=== PATIENT | male | born 1980 | race Caucasian/White ===

== ENCOUNTER 2020-03-14 04:56 | Emergency (ER) | payer SELFPAY ==
--- NOTE | 2020-03-14 05:12 | EDM.PDOC ---
ED HPI GENERAL MEDICAL PROBLEM - General Chief Complaint: Cardiovascular Problem Stated Complaint: RAPID HEART RATE, SOB Time Seen by Provider: 03/14/20 05:12 - History of Present Illness INITIAL COMMENTS - FREE TEXT/NARRATIVE: 40-year-old male presents the emergency room with shortness of breath and what he thinks is a rapid pulse. This is been going on for several days seem to get worse this morning. He has a chest tightness with this. He is not aware of any fevers but has felt warm at times. He has muscle tightness in his back especially on the right side. The patient was screened for coven on the of this month the results of that was negative. Patient denies any significant past medical history. Family history is noncontributory for the HPI however, patient's mother developed diabetes later in life. - Related Data Allergies Allergy/AdvReac Type Severity Reaction Status Date / Time No Known Allergies Allergy Verified 03/14/20 05:09 Home Meds: Home Meds . [No Known Home Meds] 03/14/20 [History] ED ROS GENERAL - Review of Systems Review Of Systems: See Below Constitutional: Reports: Fever HEENT: Reports: No Symptoms Respiratory: Reports: Shortness of Breath. Denies: Cough, Sputum Cardiovascular: Reports: No Symptoms Endocrine: Reports: No Symptoms GI/Abdominal: Reports: No Symptoms : Reports: No Symptoms Musculoskeletal: Reports: No Symptoms Neurological: Reports: No Symptoms ED EXAM, GENERAL - Physical Exam Exam: See Below Exam Limited By: Other (We have an obvious language barrier however he understand simple Kyrgyz. The hand umbrella tipper was used during the initial interview and exam and again to discuss test results and anticipated treatment.) General Appearance: Alert, No Apparent Distress Eye Exam: Bilateral Eye: Normal Inspection Ears: Normal External Exam, Normal Canal, Hearing Grossly Normal, Normal TMs Nose: Normal Inspection, Normal Mucosa, No Blood Throat/Mouth: Normal Inspection, Normal Lips, Normal Teeth, Normal Gums, Normal Oropharynx, Normal Voice, No Airway Compromise Neck: Normal Inspection, Supple, Non-Tender, Full Range of Motion Respiratory/Chest: No Respiratory Distress, Lungs Clear, Normal Breath Sounds Cardiovascular: Regular Rate, Rhythm, No Edema, No Murmur GI/Abdominal: Normal Bowel Sounds, Soft, Non-Tender Back Exam: Paraspinal Tenderness (Patient has some paraspinous tenderness in the upper thoracic region on the right and left side. This seems to be tender with palpation this extends into the base of the neck and towards the shoulders.). No: Vertebral Tenderness Extremities: Normal Inspection, No Pedal Edema Neurological: Alert, Oriented, Normal Cognition Course - Vital Signs Last Recorded V/S: Last Vital Signs Temp 36.4 C 03/14/20 05:10 Pulse 72 03/14/20 05:10 Resp 16 03/14/20 05:10 BP 112/75 03/14/20 05:10 Pulse Ox 100 03/14/20 05:10 - Orders/Labs/Meds Orders: Active Orders 24 hr Category Date Time Status EKG Documentation Completion [RC] STAT Care 03/14/20 05:31 Active CORONAVIRUS COVID-19 PCR PHL Stat Lab 03/14/20 07:57 Ordered Labs: Laboratory Tests 03/14/20 03/14/20 Range/Units 06:19 06:19 WBC 6.82 (4.23-9.07) K/mm3 RBC 4.71 (4.63-6.08) M/mm3 Hgb 14.5 (13.7-17.5) gm/dl Hct 42.1 (40.1-51.0) % MCV 89.4 (79.0-92.2) fl MCH 30.8 (25.7-32.2) pg MCHC 34.4 (32.2-35.5) g/dl RDW Std Deviation 42.3 (35.1-43.9) fL Plt Count 200 (163-337) K/mm3 MPV 11.3 (9.4-12.3) fl Neut % (Auto) 54.9 (34.0-67.9) % Lymph % (Auto) 36.2 (21.8-53.1) % [place] % (Auto) 7.8 (5.3-12.2) % Eos % (Auto) 0.7 L (0.8-7.0) Baso % (Auto) 0.1 (0.1-1.2) % Neut # (Auto) 3.74 (1.78-5.38) K/mm3 Lymph # (Auto) 2.47 (1.32-3.57) K/mm3 [place] # (Auto) 0.53 (0.30-0.82) K/mm3 Eos # (Auto) 0.05 (0.04-0.54) K/mm3 Baso # (Auto) 0.01 (0.01-0.08) K/mm3 Sodium 142 (136-145) mEq/L Potassium 3.9 (3.5-5.1) mEq/L Chloride 105 (98-107) mEq/L Carbon Dioxide 28 (21-32) mEq/L Anion Gap 12.9 (5-15) BUN 12 (7-18) mg/dL Creatinine 1.0 (0.7-1.3) mg/dL Est Cr Clr Drug Dosing TNP Estimated GFR (MDRD) > 60 (>60) mL/min BUN/Creatinine Ratio 12.0 L (14-18) Glucose 105 (74-106) mg/dL Calcium 9.4 (8.5-10.1) mg/dL Total Bilirubin 0.5 (0.2-1.0) mg/dL AST 16 (15-37) U/L ALT 30 (16-63) U/L Alkaline Phosphatase 78 (46-116) U/L Troponin I < 0.017 (0.00-0.056) ng/mL Total Protein 8.2 (6.4-8.2) g/dl Albumin 4.4 (3.4-5.0) g/dl Globulin 3.8 gm/dL Albumin/Globulin Ratio 1.2 (1-2) - Re-Assessments/Exams Free Text/Narrative Re-Assessment/Exam: 03/14/20 08:10 Chest x-ray EKG are unremarkable his laboratory evaluation is unremarkable as well. I discussed all the findings with the educational interpreter who translated the information between the patient myself. The patient had all his questions answered. He is found to have some muscle tightness in the right side at the base of his neck into his upper thorax. The patient will use ibuprofen or naproxen not both at the same time for the discomfort. The patient will have a screening test for COVID done just in case albeit he had 1 done on the of this month a lot can change between then and now. Departure - Departure Time of Disposition: 08:12 Disposition: Home, Self-Care 01 Clinical Impression: Mild shortness of breath, Thoracic myofascial strain Referrals: PCP,None [Primary Care Provider] - Forms: ED Department Discharge Additional Instructions: Return to the emergency room with any questions problems or worsening symptoms. Ibuprofen or naproxen use as needed take with food do not take both of them together. Follow-up in the hospital clinic on Saturday or for recheck if needed. We rechecked your COVID the results of this should be back by Saturday. Sepsis Event Note (ED) - Focused Exam Vital Signs: Vital Signs Temp Pulse Resp BP Pulse Ox 03/14/20 05:10 36.4 C 72 16 112/75 100 - My Orders Last 24 Hours: My Active Orders 03/14/20 05:31 EKG Documentation Completion [RC] STAT 03/14/20 07:57 CORONAVIRUS COVID-19 PCR PHL Stat - Assessment/Plan Last 24 Hours: My Active Orders 03/14/20 05:31 EKG Documentation Completion [RC] STAT 03/14/20 07:57 CORONAVIRUS COVID-19 PCR PHL Stat
--- NOTE | 2020-03-14 06:12 | CR ---
Chest: Portable view of the chest was obtained. Comparison: No prior chest imaging. Heart size and mediastinum are normal. Lungs are clear with no acute parenchymal change. Bony structures are grossly intact. Impression: 1. Nothing acute is seen on portable chest x-ray. Diagnostic code #1 This report was dictated in MDT
== END 2020-03-14 08:38 | disposition home or self-care (01) ==
LOC: JD.ED 04:56
DX: R06.02 Shortness of breath (principal); S29.012A Strain of muscle and tendon of back wall of thorax, initial encounter; Z20.828 Contact with and (suspected) exposure to other viral communicable diseases; X58.XXXA Exposure to other specified factors, initial encounter
CPT/HCPCS: 36415; 71045; 71045-26; 80053; 84484; 85025; 93005; 93010; 99283; 99285-25; U0002

== ENCOUNTER 2020-03-20 00:10 | Emergency (ER) | payer SELFPAY ==
--- NOTE | 2020-03-20 02:48 | EDM.PDOC ---
ED HPI GENERAL MEDICAL PROBLEM - General Chief Complaint: Chest Pain Stated Complaint: CHEST PAIN Time Seen by Provider: 03/20/20 02:20 Source of Information: Reports: Patient, Old Records (ED visit 03/14/2020) History Limitations: Reports: No Limitations - History of Present Illness INITIAL COMMENTS - FREE TEXT/NARRATIVE: Mr. Moss is a very pleasant 40-year-old gentleman with no chronic medical problems and no past surgical history, who, medical records indicate, was seen in this ED this past 03/14/2020 with a complaint at that time of several days of dyspnea, rapid palpitations, and chest tightness. He also complained of upper back muscle tightness. He had not had a recent fever. Work-up included a CBC, CMP, troponin, a test for the SARS-CoV-2 virus, and a chest x-ray, all of which were unremarkable. The patient was discharged home with the recommendation that he take [id number] ibuprofen or naproxen. The patient now returns the ED stating that he has had decreased energy for the past week. He reports that his parascapular pain has been going on for about 3 weeks, and, while mild, it has not been improved by taking Aleve. He states that he feels like there is "a hole" in his epigastric area for the past 3 weeks, waxing and waning. Sometimes it feels burning, and he feels hungry. He has occasional dyspnea, although no cough. He states that he developed lightheadedness about 1 hour prior to coming to the ED, and he reports having about 30 minutes of tingling to both of his hands, going up his forearms. Here in the ED, the patient is found to be hemodynamically stable, afebrile, saturating 99% on room air. Other than the symptoms listed above, the patient denies having a recent fever, chills, sore throat, ear pain, nasal or sinus congestion, cough, nausea, vomiting, constipation, diarrhea, abdominal pain, urinary symptoms, recent weight gain or weight loss, recent bloody bowel movements or black bowel movements, recent joint aches, headaches, or rashes. The patient does not have a PCP. Abdomen Pain Score (Numeric/FACES): 7 - Related Data Allergies Allergy/AdvReac Type Severity Reaction Status Date / Time No Known Allergies Allergy Verified 03/20/20 00:22 Home Meds: Home Meds . [No Known Home Meds] 03/14/20 [History] Past Medical History - Past Health History Medical/Surgical History: Denies Medical/Surgical History Social & Family History - Tobacco Use Smoking Status *Q: Never Smoker - Alcohol Use Alcohol Use History: No - Recreational Drug Use Recreational Drug Use: No - Living Situation & Occupation Living situation: Reports: , with Spouse, with Family (2 kids) Occupation: Employed ([employer]) ED ROS GENERAL - Review of Systems Review Of Systems: Comprehensive ROS is negative, except as noted in HPI. ED EXAM, GENERAL - Physical Exam Exam: See Below Exam Limited By: No Limitations General Appearance: Alert, WD/WN, No Apparent Distress Eye Exam: Bilateral Eye: EOMI, Normal Inspection Ears: Normal External Exam, Hearing Grossly Normal Nose: Normal Inspection Throat/Mouth: Normal Inspection, Normal Lips, Normal Voice, No Airway Compromise Head: Atraumatic, Normocephalic Neck: Normal Inspection, Full Range of Motion Respiratory/Chest: No Respiratory Distress, Lungs Clear, Normal Breath Sounds, No Accessory Muscle Use, Chest Non-Tender Cardiovascular: Normal Peripheral Pulses, Regular Rate, Rhythm, No Edema, No Gal lop, No JVD, No Murmur, No Rub Peripheral Pulses: 3+: Radial (L), Radial (R) GI/Abdominal: Normal Bowel Sounds, Soft, Non-Tender (including the epigastrium), No Organomegaly, No Distention, No Abnormal Bruit, No Mass (Male) Exam: Deferred Rectal (Males) Exam: Deferred Back Exam: Normal Inspection, Full Range of Motion, NT Extremities: Normal Inspection, Normal Range of Motion, No Pedal Edema, Normal Capillary Refill Neurological: Alert, Oriented, Normal Cognition, No Motor/Sensory Deficits Psychiatric: Normal Affect Skin Exam: Warm, Dry, Intact, Normal Color, No Rash EKG INTERPRETATION EKG Date: 03/20/20 Time: 00:26 Rhythm: NSR Rate (Beats/Min): 71 [place]: Normal P-Wave: Present QRS: Normal ST-T: Normal QT: Normal Comparison: No Change (03/14/2020) Course - Vital Signs Last Recorded V/S: Last Vital Signs Temp 36.5 C 03/20/20 00:21 Pulse 75 09/06/20 00:21 Resp 6 L 03/20/20 00:21 BP 128/90 03/20/20 00:21 Pulse Ox 99 03/20/20 00:21 Orthostatic Blood Pressure [ 139/99 Sitting] Orthostatic Blood Pressure [ 131/87 Supine] - Orders/Labs/Meds Orders: Active Orders 24 hr Category Date Time Status Chest 2V [CR] Stat Exams 03/20/20 02:40 Taken CORONAVIRUS COVID-19 PCR PHL Stat Lab 03/20/20 03:10 Received Labs: Laboratory Tests 03/20/20 03/20/20 03/20/20 Range/Units 02:55 02:55 02:55 WBC 8.88 (4.23-9.07) K/mm3 RBC 4.60 L (4.63-6.08) M/mm3 Hgb 14.1 (13.7-17.5) gm/dl Hct 41.2 (40.1-51.0) % MCV 89.6 (79.0-92.2) fl MCH 30.7 (25.7-32.2) pg MCHC 34.2 (32.2-35.5) g/dl RDW Std Deviation 42.4 (35.1-43.9) fL Plt Count 193 (163-337) K/mm3 MPV 11.3 (9.4-12.3) fl Neutrophils % (Manual) 58 (40-60) % Band Neutrophils % 1 (0-10) % Lymphocytes % (Manual) 33 (20-40) % Atypical Lymphs % 0 % Monocytes % (Manual) 8 (2-10) % Eosinophils % (Manual) 0 L (0.8-7.0) % Basophils % (Manual) 0 L (0.2-1.2) Platelet Estimate Adequate Plt Morphology Comment Normal RBC Morph Comment Normal D-Dimer, Quantitative < 0.19 L (0.19-0.50) mg/L Sodium 141 (136-145) mEq/L Potassium 3.5 (3.5-5.1) mEq/L Chloride 105 (98-107) mEq/L Carbon Dioxide 26 (21-32) mEq/L Anion Gap 13.5 (5-15) BUN 8 (7-18) mg/dL Creatinine 0.9 (0.7-1.3) mg/dL Est Cr Clr Drug Dosing TNP Estimated GFR (MDRD) > 60 (>60) mL/min BUN/Creatinine Ratio 8.9 L (14-18) Glucose 111 H (74-106) mg/dL Calcium 9.4 (8.5-10.1) mg/dL Magnesium 2.0 (1.8-2.4) mg/dl Total Bilirubin 0.4 (0.2-1.0) mg/dL AST 15 (15-37) U/L ALT 38 (16-63) U/L Alkaline Phosphatase 81 (46-116) U/L Troponin I < 0.017 (0.00-0.056) ng/mL Total Protein 7.9 (6.4-8.2) g/dl Albumin 4.4 (3.4-5.0) g/dl Globulin 3.5 gm/dL Albumin/Globulin Ratio 1.3 (1-2) TSH 3rd Generation 2.751 (0.358-3.74) uIU/mL - Re-Assessments/Exams Free Text/Narrative Re-Assessment/Exam: 03/20/20 02:43 As above, the patient was seen in this ED on 03/14/2020 with several days of dyspnea, rapid palpitations, chest tightness, and right back pain. His work-up was unremarkable, and he was advised to take [id number] Aleve, which he states he has been doing, without relief of his symptoms. He now returns the ED stating that he has had decreased energy a week, along with continued parascapular pain, 3 weeks of the feeling of "a hole" in his epigastrium with a burning sensation and feeling hungry, along with lightheadedness, tingling and numbness of both of his hands, and occasional dyspnea without a cough. He is hemodynamically stable, afebrile, saturating 99% on room air. His physical exam is entirely unremarkable. I suspect that the patient is suffering from anxiety, however, I have ordered a work-up that includes blood work, a chest x-ray, and orthostatics to be sure that there is no physical abnormality. An ECG obtained at triage is unremarkable. I have also ordered a send-out test for the SARS-CoV-2 virus. 03/20/20 04:04 The patient is not orthostatic. Two-view chest radiograph appears to be grossly normal. The cardiac silhouette is within normal limits. No pulmonary vascular congestion. No pleural effusions. No focal infiltrate. No pneumothorax. Formal read per the Radiolog ist pending. The patient's CBC is unremarkable. His CMP is remarkable for a blood glucose is slightly elevated at 111, and is otherwise unremarkable. His magnesium level is within normal limits at 2.0. His TSH is within normal limits at 2.751. His troponin is undetectably low. His D-dimer is undetectably low. 03/20/20 04:15 Test results discussed with the patient. As above, [place]'s work-up is entirely unremarkable. Based on his history, I suspect that he is suffering from an anxiety disorder and I therefore recommended that he follow-up in the clinic to discuss treatment options for anxiety. The patient expressed understanding. I will discharge him home. Departure - Departure Time of Disposition: 04:16 Disposition: Home, Self-Care 01 Condition: Good Clinical Impression: Anxiety disorder - Discharge Information *PRESCRIPTION DRUG MONITORING PROGRAM REVIEWED*: Not Applicable *COPY OF PRESCRIPTION DRUG MONITORING REPORT IN PATIENT ZEENAT: Not Applicable Referrals: Loretta Yo NP [Nurse Practitioner] - Forms: ED Department Discharge Additional Instructions: You were seen in the emergency room for recurrent episodes of shortness of breath with a rapid pulse, tightness in your chest, pain in the muscles in your upper back, lightheadedness, and tingling and numbness in your hands. Work-up in the ER included blood work, a chest x-ray, positional blood pressure checks, and an ECG, all of which were completely normal. You have not suffered a heart attack. You are not anemic. There is no sign of pneumonia or any other infection. No electrolyte abnormalities were found. You do not have a blood clot in your lungs. You are not dehydrated. You are not hypothyroid. You were also tested for the SARS-CoV-2 virus. You will be given those test results within the next few days. Based on your history, physical exam, and ER tests, the cause of your symptoms is most likely due to anxiety. We recommend that you follow-up with Loretta Yo NP, or one of the other providers in the clinic, to discuss treatment options for anxiety. If any other problems, please do not hesitate to return to the ER. Sepsis Event Note (ED) - Evaluation Sepsis Screening Result: No Definite Risk - Focused Exam Vital Signs: Vital Signs Temp Pulse Resp BP Pulse Ox 03/20/20 00:21 36.5 C 75 6 L 128/90 99 - My Orders Last 24 Hours: My Active Orders 03/20/20 02:40 Chest 2V [CR] Stat 03/20/20 03:10 CORONAVIRUS COVID-19 PCR PHL Stat - Assessment/Plan Last 24 Hours: My Active Orders 03/20/20 02:40 Chest 2V [CR] Stat 03/20/20 03:10 CORONAVIRUS COVID-19 PCR PHL Stat
--- NOTE | 2020-03-21 11:12 | CR ---
Chest: 2 views of the chest were obtained. Comparison: No prior chest imaging. Heart size and mediastinum are normal. Lungs are clear with no acute parenchymal change. Bony structures are unremarkable. Impression: 1. Nothing acute is seen on 2 view chest x-ray. Diagnostic code #1 This report was dictated in MDT
== END 2020-03-20 04:30 | disposition home or self-care (01) ==
LOC: JD.ED 00:10
DX: F41.9 Anxiety disorder, unspecified (principal)
CPT/HCPCS: 36415; 71046; 71046-26; 80053; 83735; 84443; 84484; 85007; 85027; 85379; 93005; 99285-25; U0002